=== PATIENT | female | born 1960 | race Caucasian/White ===

== ENCOUNTER 2016-07-02 10:38 | Outpatient (CLI) | payer BC | END 2016-07-02 10:39 | disposition home or self-care (01) | DX: R10.2 Pelvic and perineal pain (principal); Z13.1 Encounter for screening for diabetes mellitus; N39.46 Mixed incontinence; Z90.89 Acquired absence of other organs ==

== ENCOUNTER 2016-08-04 07:58 | Outpatient (CLI) | payer BC ==
[2016-08-04] MEDS ORDERED: IOPAMIDOL-300 100 ML VIAL IVP ONE (09:15)
[2016-08-04] MEDS ORDERED: IOPAMIDOL-300 50 ML VIAL PO ONE (09:15)
== END 2016-08-04 07:59 | disposition home or self-care (01) ==
DX: R10.32 Left lower quadrant pain (principal); Q64.8 Other specified congenital malformations of urinary system
CPT/HCPCS: 74177; Q9967